=== PATIENT | male | born 1960 | race Caucasian/White ===

== ENCOUNTER 2016-12-13 10:17 | Emergency (ER) | payer SELFPAY ==
[2016-12-13] MEDS ORDERED: LIDOCAINE 0.5%/EPINEPHRINE INJ 50 ML VIAL INJ ONE (10:39)
[2016-12-13] MEDS ORDERED: PREDNISONE 20 MG TABLET PO ONE (10:40)
[2016-12-13] MEDS ORDERED: IPRATROPIUM/ALBUTEROL 0.5-2.5 MG/3 ML AMPUL NEB ONE ×2 (10:40→12:32)
--- NOTE | 2016-12-13 10:41 | ER Document Report ---
ED Medical Screen (RME) - General Chief Complaint: Breathing Difficulty Stated Complaint: POSSIBLE ABSCESS ON NECK/DIFFICULTY BREATHING TRAVEL OUTSIDE OF THE [place] IN LAST 30 DAYS: No - HPI Notes: 12/13/16 10:40 Patient with shortness of breath and abscess on the left side of the neck coming in for evaluation patient has a history of emphysema continues to smoke. - Related Data Allergies/Adverse Reactions: bees Allergy (Uncoded 12/13/16 10:20) Past Medical History Renal/ Medical History: Denies: Hx Peritoneal Dialysis Review of Systems - Review of Systems Respiratory: Cough, Short of breath -: Yes All other systems reviewed and negative Physical Exam - Vital signs Vitals: Temp Pulse Resp BP Pulse Ox 97.7 F 96 20 149/84 H 98 12/13/16 10:20 12/13/16 10:20 12/13/16 10:20 12/13/16 10:20 12/13/16 10:20 Interpretation: Normal - General General appearance: Appears well, Alert - HEENT Head: Normocephalic, Atraumatic Eyes: Normal Pupils: PERRL - Respiratory Chest status: Nontender Breath sounds: Normal - Cardiovascular Rhythm: Regular Heart sounds: Normal auscultation Murmur: No - Extremities General upper extremity: Normal inspection, Nontender, Normal color, Normal ROM , Normal temperature General lower extremity: Normal inspection, Nontender, Normal color, Normal ROM , Normal temperature, Normal weight bearing. No: Abdulkadir's sign - Neurological Neuro grossly intact: Yes Cognition: Normal Orientation: AAOx4 [place] Coma Scale Eye Opening: Spontaneous [place] Coma Scale Verbal: Oriented Lee Coma Scale Motor: Obeys Commands [place] Coma Scale Total: 15 Speech: Normal Motor strength normal: LUE, RUE, LLE, RLE Sensory: Normal - Psychological Associated symptoms: Normal affect, Normal mood - Skin Skin Temperature: Warm Skin Moisture: Dry Skin Color: Normal Course - Vital Signs Vital signs: Temp Pulse Resp BP Pulse Ox 97.7 F 96 20 149/84 H 98 12/13/16 10:20 12/13/16 10:20 12/13/16 10:20 12/13/16 10:20 12/13/16 10:20
[2016-12-13 11:08] LABS: ABSOLUTE EOSINOPHILS # (AUTO) 0.2 10^3/uL (0.0-0.6); ABSOLUTE LYMPHOCYTES (AUTO) 1.6 10^3/uL (0.5-4.7); ABSOLUTE MONOCYTES (AUTO) 0.6 10^3/uL (0.1-1.4); BASOPHILS % (AUTO) 0.6 % (0-2); EOSINOPHILS % (AUTO) 2.6 % (0-6); HEMATOCRIT 41.8 % (37.9-51.0); HEMOGLOBIN 14.2 g/dL (13.5-17.0); HGB HCT DIFFERENCE 0.8; LYMPHOCYTES % (AUTO) 22.2 % (13-45); MEAN CORPUSCULAR HEMOGLOBIN 30.9 pg (27.0-33.4); MEAN CORPUSCULAR HGB CONC 33.9 g/dL (32.0-36.0); MEAN CORPUSCULAR VOLUME 91 fl (80-97); MONOCYTES % (AUTO) 7.9 % (3-13); RED BLOOD COUNT 4.59 10^6/uL (4.35-5.55); RED CELL DISTRIBUTION WIDTH 13.6 % (11.5-14.0); SEGMENTED NEUTROPHILS % (AUTO) 66.7 % (42-78); WHITE BLOOD COUNT 7.4 10^3/uL (4.0-10.5)
[2016-12-13] MEDS ORDERED: CLINDAMYCIN 600 MG/D5W RTU 50 ML IV ONE (11:12)
--- NOTE | 2016-12-13 11:14 | ER Document Report ---
ED General - General Chief Complaint: Breathing Difficulty Stated Complaint: POSSIBLE ABSCESS ON NECK/DIFFICULTY BREATHING Time seen by provider: 11:13 Mode of Arrival: Ambulatory Information source: Patient Notes: This is a 56-year-old man with a history of COPD and active smoking who presents to the emergency room with shortness of breath in the setting of running out of his medicines and a left neck swelling and redness for the past week. Patient denies fever. Patient does have a chronic cough. TRAVEL OUTSIDE OF THE [place] IN LAST 30 DAYS: No - HPI Onset: Last week Onset/Duration: Gradual Quality of pain: No pain Severity: None Pain Level: Denies Associated symptoms: Productive cough, Shortness of breath. denies: Chills, Fever Exacerbated by: Denies Relieved by: Denies Similar symptoms previously: Yes Recently seen / treated by doctor: No - Related Data Allergies/Adverse Reactions: bees Allergy (Uncoded 12/13/16 10:20) Past Medical History - General Information source: Patient - Social History Smoking Status: Current Every Day Smoker Cigarette use (# per day): Yes - 1 pack per day Chew tobacco use (# tins/day): No Smoking Education Provided: Yes - 3-5 minutes Frequency of alcohol use: None Drug Abuse: None Lives with: Homeless Family History: None Patient has suicidal ideation: No Patient has homicidal ideation: No - Past Medical History Cardiac Medical History: Reports: None Pulmonary Medical History: Reports: Hx COPD Neurological Medical History: Reports: None Endocrine Medical History: Reports: None Renal/ Medical History: Denies: Hx Peritoneal Dialysis Malignancy Medical History: Reports None GI Medical History: Reports: None Musculoskeltal Medical History: Reports None Psychiatric Medical History: Reports: None Traumatic Medical History: Reports: None Infectious Medical History: Reports: None Surgical Hx: Negative Review of Systems - Review of Systems Constitutional: denies: Chills, Fever EENT: See HPI Cardiovascular: No symptoms reported Respiratory: Cough, Short of breath Gastrointestinal: No symptoms reported Genitourinary: No symptoms reported Male Genitourinary: No symptoms reported Musculoskeletal: No symptoms reported Skin: See HPI Hematologic/Lymphatic: No symptoms reported Neurological/Psychological: No symptoms reported Physical Exam - Vital signs Vitals: Temp Pulse Resp BP Pulse Ox 97.7 F 96 20 149/84 H 98 12/13/16 10:20 12/13/16 10:20 12/13/16 10:20 12/13/16 10:20 12/13/16 10:20 Notes: Physical exam: GENERAL: 56-year-old man, alert and oriented 3, no acute distress. HEAD: Atraumatic, normocephalic. EYES: Pupils equal round and reactive to light, extraocular movements intact, sclera anicteric, conjunctiva are normal. ENT: TMs normal, nares patent, oropharynx clear without exudates. Moist mucous membranes. NECK: Patient has a 5 x 5 area of swelling and induration on the left side of his neck. It does appear to be a small scab. There is no obvious fluctuance. LUNGS: Breath sounds clear to auscultation bilaterally and equal. No wheezes rales or rhonchi. HEART: Regular rate and rhythm without murmurs, rubs or gallops. ABDOMEN: Soft, normoactive bowel sounds. No tenderness to palpation. No guarding, no rebound. No masses appreciated. EXTREMITIES: Normal range of motion, no pitting or edema. No clubbing or cyanosis. NEUROLOGICAL: Cranial nerves II through XII grossly intact. Normal speech, normal gait. PSYCH: Normal mood, normal affect. SKIN: Warm, Dry, normal turgor, no rashes or lesions noted. Course - Vital Signs Vital signs: Temp Pulse Resp BP Pulse Ox 97.7 F 96 20 149/84 H 98 12/13/16 10:20 12/13/16 10:20 12/13/16 10:20 12/13/16 10:20 12/13/16 10:20 - Laboratory Result Diagrams: 12/13/16 10:50 12/13/16 10:50 Procedures - Incision and Drainage Left Neck Time completed: 13:35 Type: Simple Anesthetic type: 1% Lidocaine mL's of anesthetic: 4 Blade size: Other - Needle I&D procedure: Betadine prep applied, Chlorprep applied Incision Method: Incision made with needle Amount/type of drainage: no pus was obtained Notes: 12/13/16 13:36 Note: Given the size and location of the wound and the history that some pus had come out of the wound, I did put a needle in to just confirm that there was no pus. I tried and 3 separate locations and there was no obtainable pulse. I discussed the results of the CAT scan as well as the results of the I and D with the patient. He did receive IV clindamycin in the ER. He reviewed received nebulizers for his COPD. I will refer him to the surgical clinic for the neck mass, [facility] for the COPD and a school library media specialist because of the pulmonary nodule. I strongly recommended that he stop smoking because of worsening COPD and increasing risk of cancer. Discharge - Discharge Clinical Impression: cellulitis left neck, COPD exacerbation Condition: Stable Disposition: HOME, SELF-CARE Additional Instructions: 1. The chest x-ray showed a small (8 mm) nodule in the left lung. Pulmonary nodules 6-8 mm in size: Follow-up CAT scan of the chest in 6-12, 18 & 24 months is recommended. Pulmonary nodules greater than 8 mm: Follow-up CAT scan of the chest 3, 9 and 12 months. You should make an appointment with a lung doctor (school library media specialist). As we discussed, continued cigarette smoking increases her chance of lung cancer as well as emphysema. I strongly recommend he stop. I left the number for the [facility] clinic on the chart. He should call them today for follow-up appointment. I have also left the number for a lung specialist below. 2. Regarding the neck mass: The CT of the neck: It did not show an abscess. It showed a lymph node with some superficial cellulitis (which is a skin infection). We did put in a needle to confirm that there was no pus. You did receive IV antibiotics (IV clindamycin). I will be sending you home on oral clindamycin as well as a pain medicine. Apply warm soaks to the area several times a day. The hospital has a surgical clinic and the surgeon is Dr. Landis: I want you to call the clinic for follow-up in their. 3. COPD Continue with the inhaler as needed. The emphysema will only get worse if you continue the smoke. I strongly recommend she stop smoking. LUNG DOCTOR (DE [employer] ELEMENT WINDER): Dr. Cale Hughes [employer] [address] [place] [id number] Prescriptions: Oxycodone HCl 5 mg PO Q6HP PRN #25 tablet PRN Reason: Clindamycin HCl 300 mg PO Q6 #40 capsule Referrals: ERIKA VALENTINE MD [ACTIVE STAFF] - Follow up as needed (This is the number of the surgical clinic) [facility] [Provider Group] - Follow up as needed (This is the number of the [facility] clinic affiliated with the hospital.)
[2016-12-13 11:32] LABS: ANION GAP 9 (5-19); BLOOD UREA NITROGEN 9 mg/dL (7-20); CALCIUM 10.1 mg/dL (8.4-10.2); CARBON DIOXIDE 28 mmol/L (22-30); CHLORIDE 103 mmol/L (98-107); CREATININE RESULT 0.85 mg/dL (0.52-1.25); GLUCOSE 109 mg/dL (75-110); MAGNESIUM 1.9 mg/dL (1.6-2.3); POTASSIUM 4.8 mmol/L (3.6-5.0); SODIUM 140.2 mmol/L (137-145)
[2016-12-13] MEDS ORDERED: ALBUTEROL SULFATE HFA (90 MCG/PUFF) 8 GM MDI (1 MDI/ER DISP) IH PRN (13:35)
[2016-12-13 13:55] VITALS: BP 136/89
== END 2016-12-13 13:54 | disposition home or self-care (01) ==
LOC: ER 10:17
PROC: 0H94XZZ Drainage of Neck Skin, External Approach (ICD-10-PCS; principal; 2016-12-13)
DX: J44.1 Chronic obstructive pulmonary disease with (acute) exacerbation (principal); L03.221 Cellulitis of neck; R91.1 Solitary pulmonary nodule; R06.02 Shortness of breath; R05 Cough; F17.200 Nicotine dependence, unspecified, uncomplicated; Z91.030 Bee allergy status; Z71.6 Tobacco abuse counseling
CPT/HCPCS: 94640 ×2; 99285; 96365; 36415; 83735; 85025; 80048; 71020; 70491; 10060; J3490; J7620